=== PATIENT | male | born 1960 | race Hispanic/Latino ===

== ENCOUNTER 2019-11-11 00:48 | Inpatient (IN) | payer SELFPAY ==
[2019-11-11] VITALS (10 sets, daily range): BP systolic 143–193; BP diastolic 67–88
[~2019-11-11] VITALS: Ht 175.3 cm; Wt 68.8 kg
[2019-11-11] MEDS ORDERED: ONDANSETRON HCL 4 MG/2 ML VIAL IV PRN (03:15)
[2019-11-11] MEDS ORDERED: GLUCAGON 1MG KIT 1 MG ML IM PRN (03:15)
[2019-11-11] MEDS ORDERED: DEXTROSE 50%-WATER 50 ML DISP.SYRIN IV PRN (03:15)
[2019-11-11] MEDS ORDERED: DIPHENHYDRAMINE HCL 25 MG CAPSULE PO PRN (03:15)
[2019-11-11] MEDS ORDERED: HEPARIN 25000 UNITS/250 ML D5W 250 ML IV SCH (03:15)
[2019-11-11] MEDS ORDERED: ACETAMINOPHEN 325 MG TAB PO PRN ×2 (03:15)
[2019-11-11] MEDS ORDERED: IPRATROPIUM/ALBUTEROL SULFATE 3 ML SOLUTION IH PRN (03:15)
[2019-11-11] MEDS ORDERED: NITROGLYCERIN 0.4 MG SL TAB SL PRN (03:15)
[2019-11-11] MEDS ORDERED: SODIUM CHLORIDE 0.9% 1000ML 1,000 ML IV ONE (03:59)
[2019-11-11] MEDS: SODIUM CHLORIDE 0.9% 1000ML 1,000 ML IV SCH ×3 (04:10→23:06)
[2019-11-11] MEDS: INSULIN HUMULIN R 100 UNIT/ML 3ML SQ SCH ×4 (06:45→21:58)
[2019-11-11 07:19] LABS: HEMATOCRIT 34.7 % (42-54); MEAN CORPUSCULAR HEMOGLOBIN 29.2 pg (27.0-33.0); MEAN CORPUSCULAR HGB CONC 33.4 g/dL (32.0-36.0); MEAN CORPUSCULAR VOLUME 87.4 fL (79-99); PLATELET COUNT (AUTO) 236 K/uL (130-400); RED BLOOD CELL COUNT(AUTO) 3.97 MIL/uL (4.50-6.20); RED CELL DISTRIBUTION WIDTH 11.9 % (11.0-15.5); WHITE BLOOD COUNT (AUTO) 9.6 K/uL (4.8-10.8)
[2019-11-11 07:32] LABS: INR 0.94 (0.85-1.15); PARTIAL THROMBOPLASTIN TIME 33.9 SEC (26.3-35.5); PROTHROMBIN TIME 10.2 SEC (9.6-11.6)
[2019-11-11 07:42] LABS: ALBUMIN 2.9 g/dL (3.5-5.0); BILIRUBIN,TOTAL 0.4 mg/dL (0.2-1.0); CREATININE 1.2 mg/dL (0.5-1.5); MAGNESIUM 1.8 mg/dL (1.80-2.40); TOTAL PROTEIN, SERUM 6.5 g/dL (6.0-8.3)
[2019-11-11 07:59] LABS: TROPONIN I 6.02 ng/mL (0.00-0.06)
[2019-11-11] MEDS ORDERED: NITROGLYCERIN 1GM/1 INCH PACKET TD SCH (08:00)
[2019-11-11 08:11] LABS: HEMOGLOBIN A1C 7.1 % (4.0-6.0)
[2019-11-11 08:22] LABS: POTASSIUM 4.6 mmol/L (3.5-5.1)
[2019-11-11] MEDS ORDERED: LIDOCAINE HCL 2% 20ML ONE (08:22)
[2019-11-11] MEDS ORDERED: IOHEXOL-350 50ML VIAL IV ONE (08:22)
[2019-11-11] MEDS ORDERED: HEPARIN SODIUM 1000UNIT/ML 10ML VIAL ONE (08:22)
[2019-11-11] MEDS ORDERED: IOHEXOL 350 MG/ML 100ML INFUS..BTL IV ONE (08:22)
[2019-11-11 08:24] LABS: LYMPHOCYTES % (MANUAL) 17 % (22-44); MAN.DIFF COMMENT-IMPRESSION MANUAL DIFFERENTIAL; MONOCYTES % (MANUAL) 3 % (2-9); PLATELET MORPHOLOGY COMMENT ADEQUATE; REACTIVE LYMPHOCYTES 4 % (0-0); SEGMENTED NEUTROPHILS % 76 % (40-70)
[2019-11-11 08:41] LABS: B-TYPE NATRIURETIC PEPTIDE 723 pg/mL (0-100)
[2019-11-11] MEDS ORDERED: LOSARTAN 50 MG TABLET PO SCH (09:00)
[2019-11-11] MEDS: ASPIRIN 81 MG EC TAB PO SCH (09:00)
[2019-11-11] MEDS ORDERED: CARVEDILOL 6.25 MG TABLET PO SCH (09:00)
[2019-11-11] MEDS ORDERED: NITROGLYCERIN 4.1 GM SPRAY TL ONE (09:18)
[2019-11-11] MEDS ORDERED: LABETALOL HCL 5 MG/ML 20ML VIAL IV ONE (09:19)
[2019-11-11] MEDS ORDERED: ATROPINE SULFATE 0.1 MG/ML 10 ML SYG IVP ONE (09:25)
[2019-11-11] MEDS ORDERED: HYDRALAZINE HCL 20 MG/ML VIAL ONE (09:36)
[2019-11-11] MEDS ORDERED: HYDRALAZINE HCL 20 MG/ML VIAL IV PRN (10:30)
[2019-11-11] MEDS: FAMOTIDINE/PF 20 MG/2 ML VIAL IV SCH ×2 (10:52→20:50)
[2019-11-11] MEDS: LOSARTAN 100 MG TABLET PO SCH (10:53)
--- NOTE | 2019-11-11 14:15 | NUR ---
RD Notification Pt admitted for Non Stemi. Pt Hx of HTN, DM, takes marijuana for appetite stimulation. Pt diet held at time of screen. RD to follow up with nutrition education. Recommend to add 75gm CCD to diet order. RD to continue to monitor. Please notify RD as additional nutrition concerns arise. Thank you. Addendum: 11/11/19 at [address] RD Amended: Links added.
--- NOTE | 2019-11-11 14:34 | NUR ---
DC PLAN VISITED WITH PATIENT. PATIENT LIVES WITH SPOUSE. INDEPENDENT ABLE TO PERFORM ADL'S. PATIENT HAS NO SERVICES OR DME'S. FEELS SAFE TO RETURN HOME. LOW INCOME CLINIC INFO GIVEN TO PATIENT. Addendum: 11/11/19 at 1435 by TRISHA HARDY RN CM Amended: Links added.
--- NOTE | 2019-11-11 20:00 | NUR ---
PT RIGHT GROIN IS SOFT AND NON TENDER. ABLE TO TAKE MEDICATIONS DIRECTED. NEW MEDICATIONS STARTED FOR BP CONTROL. NO DISTRESS NOTED. ABLE TO AMBULATE. INSULIN GIVEN NEEDED.
[2019-11-11] MEDS: CARVEDILOL 12.5 MG TABLET PO SCH (20:50)
[2019-11-11] MEDS: ISOSORBIDE MONO 30MG TAB SR PO SCH (20:50)
[2019-11-11] MEDS ORDERED: ATORVASTATIN CALCIUM 20 MG TABLET PO SCH (21:00)
[2019-11-12] VITALS: BP 156/84
[2019-11-12 04:00] VITALS: BP 139/82
[2019-11-12 04:51] LABS: BASOPHILS % (AUTO) 0.5 % (0.0-5.0); EOSINOPHILS % (AUTO) 0.8 % (0.0-8.0); HEMATOCRIT 31.3 % (42-54); LYMPHOCYTES % (AUTO) 20.5 % (21.0-51.0); MEAN CORPUSCULAR HEMOGLOBIN 29.4 pg (27.0-33.0); MEAN CORPUSCULAR HGB CONC 33.9 g/dL (32.0-36.0); MEAN CORPUSCULAR VOLUME 86.7 fL (79-99); MONOCYTES % (AUTO) 7.2 % (3.0-13.0); NEUTROPHILS % (AUTO) 70.7 % (40.0-77.0); PLATELET COUNT (AUTO) 215 K/uL (130-400); RED BLOOD CELL COUNT(AUTO) 3.61 MIL/uL (4.50-6.20); RED CELL DISTRIBUTION WIDTH 12.1 % (11.0-15.5)
[2019-11-12 05:10] LABS: ALBUMIN 2.8 g/dL (3.5-5.0); BILIRUBIN,TOTAL 0.6 mg/dL (0.2-1.0); CREATININE 1.2 mg/dL (0.5-1.5); POTASSIUM 4.2 mmol/L (3.5-5.1)
[2019-11-12] MEDS: INSULIN HUMULIN R 100 UNIT/ML 3ML SQ SCH (06:46)
[2019-11-12 08:00] VITALS: BP 151/76
[2019-11-12] MEDS ORDERED: LOSARTAN 100 MG TABLET PO SCH (09:00)
[2019-11-12] MEDS: SODIUM CHLORIDE 0.9% 1000ML 1,000 ML IV SCH (09:06)
[2019-11-12] MEDS: FAMOTIDINE/PF 20 MG/2 ML VIAL IV SCH (09:35)
[2019-11-12 09:36] VITALS: BP 151/76
[2019-11-12] MEDS: LOSARTAN 100 MG TABLET PO SCH (09:36)
[2019-11-12] MEDS: ASPIRIN 81 MG EC TAB PO SCH (09:36)
[2019-11-12] MEDS: ISOSORBIDE MONO 30MG TAB SR PO SCH (09:36)
[2019-11-12] MEDS: CARVEDILOL 12.5 MG TABLET PO SCH (09:36)
[2019-11-12] MEDS ORDERED: ATOR20TA65 PO (11:14)
[2019-11-12] MEDS ORDERED: LOSA100T2 PO (11:14)
[2019-11-12] MEDS ORDERED: CARV12.580 PO (11:14)
[2019-11-12] MEDS ORDERED: Isosorbide Mono 30MG Tab Sr PO (11:14)
[2019-11-12] MEDS ORDERED: AEC81 PO (11:14)
== END 2019-11-12 11:35 | disposition home or self-care (01) | DRG 282 ==
LOC: 2AH 02:41
PROVIDERS: ADMIT Hospitalist; ATTEND Hospitalist
PROC: B2111ZZ Fluoroscopy of Multiple Coronary Arteries using Low Osmolar Contrast (ICD-10-PCS; principal; 2019-11-11)
PROC: B2121ZZ Fluoroscopy of Single Coronary Artery Bypass Graft using Low Osmolar Contrast (ICD-10-PCS; 2019-11-11)
PROC: B2181ZZ Fluoroscopy of Left Internal Mammary Bypass Graft using Low Osmolar Contrast (ICD-10-PCS; 2019-11-11)
PROC: B2151ZZ Fluoroscopy of Left Heart using Low Osmolar Contrast (ICD-10-PCS; 2019-11-11)
PROC: 4A023N7 Measurement of Cardiac Sampling and Pressure, Left Heart, Percutaneous Approach (ICD-10-PCS; 2019-11-11)
DX: I21.4 Non-ST elevation (NSTEMI) myocardial infarction (principal); E11.9 Type 2 diabetes mellitus without complications; E78.5 Hyperlipidemia, unspecified; I10 Essential (primary) hypertension; I25.10 Atherosclerotic heart disease of native coronary artery without angina pectoris; Z91.19 Patient's noncompliance with other medical treatment and regimen; F12.10 Cannabis abuse, uncomplicated; Z95.1 Presence of aortocoronary bypass graft
CPT/HCPCS: 36415; 80053; 80061; 82550; 82948; 83036; 83735; 83874; 83880; 84484; 85025; 85347; 85610; 85730; 93005; 93459; 94664; C1769; C1894; G0378; J0360; J0461; J1644; J1815; J3490; J7030; Q9967